=== PATIENT | female | born 1965 | race African-American/Black ===

== ENCOUNTER → 2016-10-25 | Emergency (ER) | payer OTHER ==
[~2016-10-25] MED LIST: KETOROLAC TROMETHAMINE 30 MG/1 ML VIAL IVPUSH ONE; KETOROLAC TROMETHAMINE 30 MG/1 ML VIAL ONE; PANTOPRAZOLE SODIUM 100 ML IVPB ONE; PANTOPRAZOLE SODIUM 40 MG in SODIUM CHLORIDE 100 ML IVPB ONE; SODIUM CHLORIDE 1,000 ML IV STA
[2016-10-25 22:51] VITALS: TEMP 98.1; BMI 31.6
--- NOTE | 2016-10-25 23:23 | PDOC ---
History of Present Illness - General History Source: Patient Exam Limitations: No Limitations - History of Present Illness Initial Comments: 10/26/16 00:03 The patient is a 51-year-old female, with a significant past medical history of a hiatal hernia (last year), who presents to the ED with one month of intermittent chest pain. Pain is located at the mid sternum and radiates to the back. She rates the pain 10/10 and describes it as a burning sensation. Pt reports to the ED because the pain came on at 10PM while she was sitting down. She does report experiencing nausea but no vomiting or diarrhea. She denies taking any contraceptives or devices. The patient denies any fever, chills, or abdominal pain. The patient denies any shortness of breath. <Marlys Benito - Last Filed: 10/26/16 00:03> - General History Source: Patient <Romeo Hilton - Last Filed: 10/26/16 01:58> - General Chief Complaint: Chest Pain Stated Complaint: CHEST PAIN Time Seen by Provider: 10/25/16 22:56 Past History <Marlys Benito - Last Filed: 10/26/16 00:03> - Psycho/Social/Smoking Cessation Hx Suicidal Ideation: No Smoking History: Never smoked Have you smoked in the past 12 months: No Information on smoking cessation initiated: No Hx Alcohol Use: No Drug/Substance Use Hx: No <Romeo Hilton - Last Filed: 10/26/16 01:58> - Past Medical History Allergies/Adverse Reactions: Allergies Allergy/AdvReac Type Severity Reaction Status Date / Time No Known Allergies Allergy Verified 10/25/16 22:51 Home Medications: Ambulatory Orders Ibuprofen 800 mg PO TID #30 tablet 10/26/16 Pantoprazole Sodium [Protonix] 40 mg PO DAILY #30 tablet. 10/26/16 Review of Systems - Review of Systems Comments:: 10/26/16 00:04 CONSTITUTIONAL: Absent: fever, chills, diaphoresis, generalized weakness, malaise, loss of appetite HEENT: Absent: rhinorrhea, nasal congestion, throat pain, throat swelling, difficulty swallowing, mouth swelling, ear pain, eye pain, visual Changes CARDIOVASCULAR: Present: chest pain Absent: syncope, palpitations, irregular heart rate, lightheadedness, peripheral edema RESPIRATORY: Absent: cough, shortness of breath, dyspnea with exertion, orthopnea, wheezing, stridor, hemoptysis GASTROINTESTINAL: Present: nausea Absent: abdominal pain, abdominal distension, vomiting, diarrhea, constipation, melena, hematochezia GENITOURINARY: Absent: dysuria, frequency, urgency, hesitancy, hematuria, flank pain, genital pain MUSCULOSKELETAL: Present: back pain Absent: arthralgia, joint swelling SKIN: Absent: rash, itching, pallor HEMATOLOGIC/IMMUNOLOGIC: Absent: easy bleeding, easy bruising, lymphadenopathy, frequent infections ENDOCRINE: Absent: unexplained weight gain, unexplained weight loss, heat intolerance, cold intolerance NEUROLOGIC: Absent: headache, focal weakness or paresthesias, dizziness, unsteady gait, seizure, mental status changes, bladder or bowel incontinence PSYCHIATRIC: Absent: anxiety, depression, suicidal or homicidal ideation, hallucinations. <Marlys Benito - Last Filed: 10/26/16 00:03> *Physical Exam - Vital Signs Last Vital Signs Temp Pulse Resp BP Pulse Ox 98.1 F 81 18 159/94 98 10/25/16 22:46 10/25/16 22:46 10/25/16 22:46 10/25/16 22:46 10/25/16 22:46 - Physical Exam Comments: 10/26/16 00:05 Well developed, well nourished. Awake and alert. +Moderate distress HEENT: Normocephalic, atraumatic. PERRLA, EOMI. No conjunctival pallor. Sclera are non- icteric. Moist mucous membranes. Oropharynx is clear. NECK: Supple. Full ROM. No JVD. Carotid pulses 2+ and symmetric, without bruits. No thyromegaly. No lymphadenopathy. CARDIOVASCULAR: Regular rate and rhythm. No murmurs, rubs, or gallops. Distal pulses are 2+ and symmetric. PULMONARY: No evidence of respiratory distress. Lungs clear to auscultation bilaterally. No wheezing, rales or rhonchi. ABDOMINAL: Soft. Non-tender. Non-distended. No rebound or guarding. No organomegaly. Normoactive bowel sounds. MUSCULOSKELETAL Normal range of motion at all joints. No bony deformities. No CVA tenderness. + Tenderness in left sternal border EXTREMITIES: No cyanosis. No clubbing. No edema. No calf tenderness. SKIN: Warm and dry. Normal capillary refill. No rashes. No jaundice. NEUROLOGICAL: Alert, awake, appropriate. Neurologically intact PSYCHIATRIC: Cooperative. Good eye contact. Appropriate mood and affect. <Marlys Benito - Last Filed: 10/26/16 00:03> - Vital Signs Last Vital Signs Temp Pulse Resp BP Pulse Ox 98.1 F 81 18 159/94 98 10/25/16 22:46 10/25/16 22:46 10/25/16 22:46 10/25/16 22:46 10/25/16 22:46 <Romeo Hilton - Last Filed: 10/26/16 01:58> ED Treatment Course - LABORATORY CBC & Chemistry Diagram: 10/25/16 23:35 10/25/16 23:35 - Medications Given in the ED: ED Medications Discontinued Medications Generic Name Dose Route Start Last Admin Trade Name Bethelq PRN Reason Stop Dose Admin Pantoprazole Sodium 40 mg/ 100 mls @ 200 mls/hr 10/25/16 23:24 10/25/16 23:35 Sodium Chloride IVPB 10/25/16 23:53 200 mls/hr ONCE ONE Administration <Marlys Benito - Last Filed: 10/26/16 00:03> - LABORATORY CBC & Chemistry Diagram: 10/25/16 23:35 10/25/16 23:35 <Romeo Hilton - Last Filed: 10/26/16 01:58> Medical Decision Making - Medical Decision Making 10/26/16 01:58 Dr. Hilton: The scribe's documentation has been prepared under my direction and personally reviewed by me in its entirery. I confirm that the note above accurately reflects all work, treatment, procedures, and medical decision making performed by me. <Romeo Hilton - Last Filed: 10/26/16 01:58> *DC/Admit/Observation/Transfer - Attestations Scribe Attestion: 10/26/16 00:07 Documentation prepared by Marlys Benito, acting as medical dermatologist for Romeo Hilton MD. <Marlys Benito - Last Filed: 10/26/16 00:03> - Discharge Dispostion Admit: No <Romeo Hilton - Last Filed: 10/26/16 01:58> Diagnosis at time of Disposition: Chest pain - Discharge Dispostion Disposition: HOME Condition at time of disposition: Stable - Referrals Referrals: Edgar Vickers MD [Primary Care Provider] - - Patient Instructions Printed Discharge Instructions: DI for Chest Pain - Post Discharge Activity Work/School Note: Back to Work
[2016-10-26 00:04] LABS: BASOPHIL 0.8 % (0-2.0); EOSINOPHIL 5.3 % (0-4.5); MCH 29.5 pg (25.7-33.7); MCHC 33.1 g/dl (32.0-36.0); MEAN PLT VOLUME 7.9 fl (7.5-11.1); NEUTROPHILS 41.7 % (42.8-82.8); PLATELET COUNT 305 K/MM3 (134-434); WHITE BLOOD COUNT 6.2 K/mm3 (4.0-10.0)
[2016-10-26 00:22] LABS: ALBUMIN 3.9 g/dl (3.4-5.0); ALK PHOS 93 U/L (45-117); AMYLASE 83 U/L (25-115); ANION GAP 6 (8-16); BILIRUBIN,TOTAL 0.4 mg/dL (0.2-1.0); CALCIUM 9.1 mg/dL (8.5-10.1); CO2 30 mmol/L (21-32); GLUCOSE,RANDOM 96 mg/dL (74-106); SGPT/ALT 20 U/L (12-78); TOT PROT 7.5 g/dl (6.4-8.2); TROPONIN I < 0.02 ng/ml (0.00-0.05)
[2016-10-26 00:23] LABS: MAGNESIUM 1.9 mg/dL (1.8-2.4); SGOT/AST 22 U/L (15-37)
[2016-10-26 02:12] VITALS: BP 160/89; PULSE 72
--- NOTE | 2016-10-27 14:58 | EKG ---
Test Reason : Blood Pressure : / mmHG Vent. Rate : 081 BPM Atrial Rate : 082 BPM P-R Int : 172 ms QRS Dur : 080 ms QT Int : 370 ms P-R-T Axes : 061 023 047 degrees QTc Int : 429 ms NORMAL SINUS RHYTHM POSSIBLE LEFT ATRIAL ENLARGEMENT SEPTAL INFARCT , AGE UNDETERMINED ABNORMAL ECG NO PREVIOUS ECGS AVAILABLE Confirmed by TRACI REIS MD ([id number]) on 10/27/2016 2:58:31 PM Referred By: Confirmed By:TRACI REIS MD
== END | disposition home or self-care (01) ==
LOC: JER 22:39
DX: R07.89 Other chest pain (principal)
CPT/HCPCS: 36415; 80053; 81003; 82150; 82550; 82553; 83690; 83735; 84484; 84703; 85025; 93005; 93010; 99283-25

== ENCOUNTER 2018-11-11 08:38 | Emergency (ER) | payer OTHER ==
[2018-11-11 08:47] VITALS: BP 159/92; PULSE 90; TEMP 97.9; BMI 31.6
--- NOTE | 2018-11-11 09:26 | PDOC ---
History of Present Illness - General Chief Complaint: Respiratory Stated Complaint: COUGH Time Seen by Provider: 11/11/18 09:07 History Source: Patient Exam Limitations: No Limitations - History of Present Illness Initial Comments: 11/11/18 09:20 Patient here with multiple complaints, #1 complaints of chronic postnasal drainage and cough since March. Has tried multiple [id number]-net-spumjcf medications including nasal steroids, cough and cold preparations. Was seen by her PMD in the fall and winter and was prescribed antibiotics which made no difference. Has not followed up with him since. Denies Fevers, earache sore throat. Second complaint is intermittent low back pain Timing/Duration: reports: intermittent Severity: reports: mild, moderate Past History - Past Medical History Allergies/Adverse Reactions: Allergies Allergy/AdvReac Type Severity Reaction Status Date / Time No Known Allergies Allergy Verified 11/11/18 08:46 Home Medications: Ambulatory Orders Ibuprofen 800 mg PO TID #30 tablet 10/26/16 Pantoprazole Sodium [Protonix] 40 mg PO DAILY #30 tablet. 10/26/16 Cetirizine HCl/Pseudoephedrine [Eql All Day Allergy-D Tablet] 1 each PO DAILY # 30 tab.er.12h 11/11/18 Cyclobenzaprine HCl 10 mg PO Q8H PRN #14 tablet 11/11/18 Naproxen [Naprosyn -] 500 mg PO BID #30 tablet 11/11/18 COPD: No - Suicide/Smoking/Psychosocial Hx Smoking History: Never smoked Have you smoked in the past 12 months: No Hx Alcohol Use: No Drug/Substance Use Hx: No Substance Use Type: None Review of Systems - Review of Systems Able to Perform ROS?: Yes Is the patient limited Kiswahili proficient: Yes Constitutional: Yes: Symptoms Reported, See HPI. No: Chills, Fever, Malaise HEENTM: Yes: Symptoms Reported, See HPI, Nose Pain, Nose Congestion Respiratory: Yes: See HPI, Cough. No: Wheezing Musculoskeletal: Yes: Symptoms Reported, See HPI, Back Pain, Muscle Pain All Other Systems: Reviewed and Negative *Physical Exam - Vital Signs Last Vital Signs Temp Pulse Resp BP Pulse Ox 97.9 F 90 18 159/92 99 11/11/18 08:44 11/11/18 08:44 11/11/18 08:44 11/11/18 08:44 11/11/18 08:44 - Physical Exam General Appearance: Yes: Nourished, Appropriately Dressed, Apparent Distress, Mild Distress HEENT: positive: RYAN, TMs Normal (congested but landmarks easily visualized), Rhinorrhea, Sinus Tenderness, Other (clear drainage noted in posterior pharynx) Gastrointestinal/Abdominal: positive: Soft. negative: Tender Musculoskeletal: positive: Normal Inspection, Muscle Spasm (mild tenderness noted to the paravertebral spinous muscles left side primarily, no true bone tenderness, and range of motion somewhat limited secondary to this pain to her left hip neurovascular intact to feet, no bone tenderness to hip or pelvis.. ). negative: CVA Tenderness, Vertebral Tenderness Extremity: positive: Normal Capillary Refill, Normal Inspection, Normal Range of Motion Integumentary: positive: Normal Color, Dry, Warm Neurologic: positive: spot man II-XII NML intact, Fully Oriented, Alert, Normal Mood/ Affect, Normal Response, Motor Strength 5/5 Progress Note - Progress Note Progress Note: #1 ALLERGIC rhinitis will treat with antihistamines with Sudafed and have follow -up with PMD #2 low back strain, will treat with NSAIDs and cyclobenzaprine *DC/Admit/Observation/Transfer Diagnosis at time of Disposition: Allergic rhinitis Qualifiers: Allergic rhinitis trigger: unspecified Allergic rhinitis seasonality: unspecified Qualified Code(s): J30.9 - Allergic rhinitis, unspecified Low back strain Qualifiers: Encounter type: initial encounter Qualified Code(s): S39.012A - Strain of muscle, fascia and tendon of lower back, initial encounter - Discharge Dispostion Disposition: HOME Condition at time of disposition: Stable Decision to Admit order: No - Referrals - Patient Instructions Printed Discharge Instructions: DI for Allergic Rhinitis, DI for Low Back Pain Additional Instructions: Rest, drink lots of fluids: Teas, water, soups Saltwater gargles. Consider humidifier in room at night Steamy showers/seem to face break up mucus Avoid contact with allergens, exposure to pollens, close windows on a windy day Lots of handwashing and good hygiene Continue pjsj-fyz-[id number] medications for symptomatic relief- may use allergic eyedrops for itching I Continue antihistamines daily until pollen season is over; Zyrtec, Claritin, Jamia during the daytime and Benadryl at nighttime as will make sleepy Tylenol or Motrin for fever and pain Followup with private physician in one to 2 days as needed Consider following up with an marketing database consultant/learning analyst for skin testing and possible allergy shots Return to emergency department for worsened symptoms, fevers, dehydration Rest, no heavy lifting or exercise until pain is resolved Hot soaks to neck and low back as often as possible/hot showers or Jacuzzis No massage or therapy until spasm is gone Continue Naprosyn 500 mg tablet, 1 tablet every 12 hours for the next 3 days then as needed for pain and swelling Cyclobenzaprine 1-10mg every 8 hours as needed for spasm If not significant improvement within 24 hours with medication and rest regime, followup with private physician for change in medications and /or therapy. - Post Discharge Activity Forms/Work/School Notes: Back to Work
== END 2018-11-11 09:29 | disposition home or self-care (01) ==
LOC: JER 08:38 → JERFT 08:38
DX: J30.9 Allergic rhinitis, unspecified (principal); S39.012A Strain of muscle, fascia and tendon of lower back, initial encounter; X58.XXXA Exposure to other specified factors, initial encounter; Y93.89 Activity, other specified; Y92.89 Other specified places as the place of occurrence of the external cause; Y99.8 Other external cause status
CPT/HCPCS: 99281-25

== ENCOUNTER 2019-07-03 08:41 | Day surgery (SDC) | payer OTHER ==
[2019-07-02 16:43] VITALS: BMI 33.3
[2019-07-03 11:04] VITALS: TEMP 97.7
[2019-07-03] MEDS ORDERED: MAG HYDROX/AL HYDROX/SIMETH 30 ML UNIT-DOSE CUP PO ONE (12:15)
[2019-07-03] MEDS ORDERED: ACETAMINOPHEN 325 MG TABLET (FP) ONE (12:15)
--- NOTE | 2019-07-03 12:35 | EKG ---
Test Reason : Blood Pressure : / mmHG Vent. Rate : 073 BPM Atrial Rate : 073 BPM P-R Int : 184 ms QRS Dur : 080 ms QT Int : 386 ms P-R-T Axes : 048 009 021 degrees QTc Int : 425 ms NORMAL SINUS RHYTHM NORMAL ECG WHEN COMPARED WITH ECG OF 25-OCT-2016 22:59, CRITERIA FOR SEPTAL INFARCT ARE NO LONGER PRESENT Confirmed by MD MARLENE, BEVERLY ([id number]) on 07/03/2019 12:34:36 PM Referred By: Confirmed By:BEVERLY ROSARIO MD
[2019-07-03 12:54] VITALS: BP 121/68; PULSE 73
--- NOTE | 2019-07-04 14:17 | PATH ---
Surgical Pathology Report Patient Name: PAULINO ANDREWS [facility]. Rec. #: [id number] /Age/Gender: 1965 (Age: 54) / F Account: [id number] Location: Taken: 07/03/2019 Received: 07/03/2019 Reported: 07/04/2019 Physicians: Nellie Yuen M.D. Specimen(s) Received A: ANTRUM B: DUODENUM, SECOND PORTION AND BULB C: DISTAL ESOPHAGEAL JUNCTION D: MID ESOPHAGUS Clinical History Screening Postoperative diagnosis: Hiatal hernia, GERD Final Diagnosis A. STOMACH, ANTRUM, BIOPSY: GASTRIC ANTRAL MUCOSA WITH MILD CHRONIC FOCAL ACTIVE GASTRITIS. IMMUNOHISTOCHEMICAL STAIN FOR H. PYLORI IS NEGATIVE. B. DUODENUM, SECOND PORTION AND BULB, BIOPSY: DUODENAL MUCOSA WITHOUT SIGNIFICANT PATHOLOGIC FINDINGS. C. DISTAL ESOPHAGEAL JUNCTION, BIOPSY: SQUAMOUS MUCOSA WITH CHANGES OF MILD REFLUX TYPE ESOPHAGITIS. D. MID ESOPHAGUS, BIOPSY: SQUAMOUS MUCOSA WITHOUT SIGNIFICANT PATHOLOGIC FINDINGS. Positive and negative controls (internal if applicable) show appropriate results. Electronically Signed Saumya Zuñiga M.D. Gross Description A. Received in formalin, labeled "biopsy antrum" are 2 donaldson, irregular portions of soft tissue measuring 0.1 and 0.5 cm. in greatest dimension. The specimens are submitted in toto in one cassette. B. Received in formalin, labeled "biopsy bulb of duodenum and second portion" are 3 donaldson, irregular portions of soft tissue ranging from 0.3-0.7 cm. in greatest dimension. The specimens are submitted in toto in one cassette. C. Received in formalin, labeled "biopsy distal esophageal junction" are 2 donaldson, irregular portions of soft tissue measuring 0.2 and 0.3 cm. in greatest dimension. The specimens are submitted in toto in one cassette. D. Received in formalin, labeled "biopsy midesophagus" are 2 donaldson, irregular portions of soft tissue averaging 0.2 cm. in greatest dimension. The specimens are submitted in toto in one cassette. 07/03/2019 [facility]07/03/2019
== END 2019-07-03 12:54 | disposition home or self-care (01) ==
LOC: JASU-SURG 08:41
PROVIDERS: ATTEND Internal Medicine Gastroenterology
PROC: 0DB68ZX Excision of Stomach, Via Natural or Artificial Opening Endoscopic, Diagnostic (ICD-10-PCS; 2019-07-03)
PROC: 0DB28ZX Excision of Middle Esophagus, Via Natural or Artificial Opening Endoscopic, Diagnostic (ICD-10-PCS; 2019-07-03)
PROC: 0DB38ZX Excision of Lower Esophagus, Via Natural or Artificial Opening Endoscopic, Diagnostic (ICD-10-PCS; 2019-07-03)
PROC: 0DB98ZX Excision of Duodenum, Via Natural or Artificial Opening Endoscopic, Diagnostic (ICD-10-PCS; principal; 2019-07-03 09:30)
DX: K29.50 Unspecified chronic gastritis without bleeding (principal); K21.0 Gastro-esophageal reflux disease with esophagitis; K21.9 Gastro-esophageal reflux disease without esophagitis; K44.9 Diaphragmatic hernia without obstruction or gangrene; I10 Essential (primary) hypertension; E78.5 Hyperlipidemia, unspecified
CPT/HCPCS: 81025; 93005; 93010

== ENCOUNTER 2020-06-17 04:34 | Day surgery (SDC) | payer OTHER ==
[2020-06-12 13:53] VITALS: BMI 31.6
[2020-06-17 10:05] VITALS: TEMP 98.1
[2020-06-17 10:45] VITALS: BP 127/70; PULSE 71
== END 2020-06-17 10:46 | disposition home or self-care (01) ==
LOC: JASU-ENDO 04:34
PROVIDERS: ATTEND Internal Medicine Gastroenterology
PROC: 0DBP8ZX Excision of Rectum, Via Natural or Artificial Opening Endoscopic, Diagnostic (ICD-10-PCS; principal; 2020-06-17 09:30)
DX: K62.1 Rectal polyp (principal); K57.30 Diverticulosis of large intestine without perforation or abscess without bleeding; K59.89 Other specified functional intestinal disorders
CPT/HCPCS: 81025